=== PATIENT | male | born 1975 | race Caucasian/White ===

== ENCOUNTER → 2016-07-12 | Outpatient (CLI) | payer OTHER ==
[~2016-07-12] MED LIST: FLEXERIL 1010 MG/TAB PO; MOTRIN 800800 MG/TAB PO; NORCO 325 MG-7.1 TAB PO
== END ==
LOC: BHSO 10:47
DX: F41.1 Generalized anxiety disorder (principal)

== ENCOUNTER → 2017-07-29 | Outpatient (CLI) | payer OTHER | LOC: COL.RAD 07-22 09:00 | DX: M92.61 Juvenile osteochondrosis of tarsus, right ankle (principal); S93.491A Sprain of other ligament of right ankle, initial encounter; S93.411A Sprain of calcaneofibular ligament of right ankle, initial encounter ==